=== PATIENT | male | born 1990 | race African-American/Black ===

== ENCOUNTER 2018-12-07 09:39 | Emergency (ER) | payer BC, OTHER ==
[~2018-12-07] VITALS: Ht 182.9 cm; Wt 68.0 kg
[~2018-12-07 09:39] MED LIST: FLEXERIL PO; NOHOMEMEDICATIONS; NORCO 5-325 TA1 EACH PO; VICODIN 5-5001 EACH PO
[2018-12-07 09:40] VITALS: BP 115/65
[2018-12-07] MEDS ORDERED: CYCLOBENZAPRINE5 MG PO (09:55)
[2018-12-07] MEDS ORDERED: LIDOCAINE PAIN1 EACH TOP (09:55)
[2018-12-07] MEDS ORDERED: MOBIC7.5 MG PO (09:55)
== END 2018-12-07 10:46 | disposition home or self-care (01) ==
LOC: ER 09:39
DX: M54.5 Low back pain (principal); F17.210 Nicotine dependence, cigarettes, uncomplicated; Z88.0 Allergy status to penicillin